=== PATIENT | female | born 1970 | race African-American/Black ===

== ENCOUNTER 2019-12-06 19:18 | Emergency (ER) | payer OTHER ==
[~2019-12-06] VITALS: Ht 182.9 cm; Wt 113.4 kg
[2019-12-06] MEDS ORDERED: NORCO 5-325 TA1 EAC2 PO (20:50)
[2019-12-06 21:12] VITALS: BP 130/80
== END 2019-12-06 21:14 | disposition home or self-care (01) ==
LOC: ER 19:18
DX: O9A.211 Injury, poisoning and certain other consequences of external causes complicating pregnancy, first trimester (principal); S16.1XXA Strain of muscle, fascia and tendon at neck level, initial encounter; S80.02XA Contusion of left knee, initial encounter; S80.01XA Contusion of right knee, initial encounter; Z3A.00 Weeks of gestation of pregnancy not specified; W01.0XXA Fall on same level from slipping, tripping and stumbling without subsequent striking against object, initial encounter; Y93.89 Activity, other specified; Y92.89 Other specified places as the place of occurrence of the external cause; Y99.8 Other external cause status